=== PATIENT | female | born 1955 | race Caucasian/White ===

== ENCOUNTER 2018-12-20 01:42 | Outpatient (CLI) | payer OTHER, SELFPAY ==
--- NOTE | 2018-12-20 09:07 | DI.MAMMO_ITS ---
EXAM: MAMMO SCREENING CLINICAL HISTORY: SCREENING, Z12.31 TECHNIQUE: Mammograms were interpreted according to the usual protocol including computer analysis w [employer] CAD system, tomosynthesis and C-view imaging. COMPARISON: [id number] FINDINGS: The breasts are composed of scattered areas of fibroglandular density, breast density category B. No dominant masses or microcalcifications are seen. Examination is compared with prior examinations from 2009 through 2017 and there has been no significant interval change. IMPRESSION: There is no evidence of malignancy. Yearly screening examinations are recommended. Category 1. BI-RADS Cat 1 - Negative Breast Density - Category B - Scattered areas of fibroglandular density
== END 2018-12-20 02:02 ==
PROVIDERS: PCP General Practice; Visit Provider General Practice
DX: Z12.31 Encounter for screening mammogram for malignant neoplasm of breast (principal)
CPT/HCPCS: 77063; 77067

== ENCOUNTER 2019-12-26 00:55 | Outpatient (CLI) | payer OTHER, SELFPAY ==
--- NOTE | 2019-12-26 08:50 | DI.MAMMO_ITS ---
EXAM: MAMMO SCREENING CLINICAL HISTORY: SCREENING, Z12.31 TECHNIQUE: Mammograms were interpreted according to the usual protocol including computer analysis w [employer] CAD system, tomosynthesis and C-view imaging. COMPARISON: 2010 through 2018 FINDINGS: The breasts are composed of scattered fibroglandular densities, Breast Density category B. No suspicious masses or suspicious microcalcifications are seen. No skin thickening or abnormal axillary lymph nodes are seen. There has been no significant change from prior exams. IMPRESSION: BI-RADS Category 1, Negative mammogram Yearly screening mammography is recommended. Breast Density - Category B, scattered fibroglandular densities. A negative radiographic report should not delay biopsy if a dominant or clinically suspicious mass is present. Up to ten percent of cancers are not identified on mammography. A negative report may reinforce clinical impression. Adenosis and dense breasts may obscure an underlying neoplasm. False positive reports average 6 to 10%. Patient will receive a letter notifying them of these results.
== END 2019-12-26 01:15 ==
PROVIDERS: PCP General Practice; Visit Provider General Practice
DX: Z12.31 Encounter for screening mammogram for malignant neoplasm of breast (principal)
CPT/HCPCS: 77063; 77067

== ENCOUNTER 2020-12-26 01:04 | Outpatient (CLI) | payer OTHER, SELFPAY ==
--- NOTE | 2020-12-26 | DI.MAMMO_ITS ---
Exam(s) MAMMO SCREENING EXAM: MAMMO SCREENING CLINICAL HISTORY: SCREENING, Z12.31 TECHNIQUE: Bilateral full field digital CC and MLO mammographic images were obtained with 3D tomosyn thesis and utilizing computer aided detection (CAD). COMPARISON: Available for comparison. FINDINGS: Masses/Architectural Distortion: None seen. Microcalcifications: No suspicious pleomorphic-type are seen. Skin Thickening/Nipple Retraction: None. IMPRESSION: 1. No significant interval change with no specific features of malignancy noted. 2. Unless there is more urgent need, screening mammography is recommended, as per [employer] guidelines. BI-RADS Category 1 - Negative Breast Density - Category C - Heterogeneously dense Breast density category C or D implies that the patient has dense breast tissue. Dense breast tissue is very common and is not abnormal but dense breast tissue can make it harder to find cancer on a ma mmogram. Also, dense breast tissue may increase their breast cancer risk. This information about the result of the mammogram report was provided to the patient to raise their awareness. Use this report when you speak with the patient about their risks for breast cancer, which includes their family hist ory. At that time, you may recommend for more screening tests (Ultrasound or MRI) as they might be us eful based on their risk. A negative radiographic report should not delay biopsy if a dominant or clinically suspicious mass is present. Up to ten percent of cancers are not identified on mammography. A negative report may reinforce clinical impression. Adenosis and dense breasts may obscure an underlying neoplasm. False positive reports average 6 to 10%. Patient will receive a letter notifying them of these results.
== END 2020-12-26 01:24 ==
PROVIDERS: PCP General Practice; Visit Provider General Practice
DX: Z12.31 Encounter for screening mammogram for malignant neoplasm of breast (principal); R92.8 Other abnormal and inconclusive findings on diagnostic imaging of breast
CPT/HCPCS: 77063; 77067

== ENCOUNTER → 2022-02-24 00:52 | Outpatient (CLI) | payer OTHER, SELFPAY ==
--- NOTE | 2022-02-24 | DI.MAMMO_ITS ---
Exam(s) MAMMO SCREENING EXAM: MAMMO SCREENING CLINICAL HISTORY: SCREENING, Z12.31. TECHNIQUE: Bilateral full field digital CC and MLO mammographic images were obtained with 3D tomosyn thesis and utilizing computer aided detection (CAD). COMPARISON: Prior mammograms were reviewed. FINDINGS: There has been no significant change in the appearance and distribution of the fibroglandular tissue. No CAD designations. There are no new spiculated masses nor malignant appearing microcalcification groups. There is no significant architectural distortion nor skin thickening-retraction. IMPRESSION: No radiographic evidence of malignancy. BI-RADS Category 1 - Negative Breast Density - Category B - Scattered areas of fibroglandular density Breast density Category C or D implies that the patient has dense breast tissue. Dense breast tissue can make it harder to find cancer on a mammogram. Dense breast tissue is also associated with an incr eased risk of breast cancer. This information about the result of the mammogram report was provided to the patient to raise their awareness. Use this report when you speak with the patient about their risks for breast cancer, which includes their family history. At that time, you may recommend additional screening tests (Ultrasoun d or MRI) as these tests may add significant information. A negative radiographic report should not delay biopsy if a dominant or clinically suspicious mass is present. Up to ten percent of cancers are not identified on mammography. A negative report may reinforce clinical impression. Adenosis and dense breasts may obscure an underlying neoplasm. False positive reports average 6 to 10%. Patient will receive a letter notifying them of these results.
== END ==
PROVIDERS: PCP General Practice; Visit Provider General Practice
DX: Z12.31 Encounter for screening mammogram for malignant neoplasm of breast (principal)
CPT/HCPCS: 77063; 77067

== ENCOUNTER → 2022-10-21 08:42 | Outpatient (BNVA) | payer MEDICARE, SELFPAY | PROVIDERS: PCP General Practice; Referring Provider General Practice; Visit Provider Physical Therapy Assistant | DX: Z12.11 Encounter for screening for malignant neoplasm of colon (principal); Z86.010 Personal history of colon polyps ==

== ENCOUNTER 2022-11-01 07:35 | Day surgery (SDC) | payer MEDICARE, SELFPAY ==
--- NOTE | 2022-10-31 09:43 | PDOC.DSDIS_ITS ---
Date of service: 11/01/22 Time of Service: 09:21 Discharge Plan Disposition Patient Disposition: Home Condition: Good Discharge Details Reason For Visit: Screening colonoscopy Attending Provider: Gelacio Marie Primary Care Provider: Marisol Rice Home Meds and New Rx's Prescriptions: Continued flaxseed oil 1,000 MG capsule 1,000 mg PO DAILY Daily Multiple 1 EACH tablet 1 tab-cap PO DAILY clobetasol 15 GM ointment 15 gm Topical dailyprn Qty: 1 6RF cholecalciferol (vitamin D3) 25 mcg (1,000 unit) capsule 25 mcg PO DAILY Patient Comments: pt states takes them more in the winter months, less in the summer coenzyme Q10 [Co Q-10] 100 mg capsule 100 mg PO DAILY Discontinued polyethylene glycol 3350 17 gram/dose powder 238 g PO ONCE Qty: 238 0RF Rx Instructions: take per colonoscopy instructions bisacodyl [Dulcolax (bisacodyl)] 5 mg tablet,delayed release (DR/EC) 5 mg PO ONCE Qty: 4 0RF Rx Instructions: take per colonoscopy instructions Discharge Instructions Instructions: Diverticulosis (GEN), Diverticulosis Diet (GEN) Additional Instructions: Vaccine, we were able to complete your colonoscopy today without any problems. The quality of your prep was excellent. I did not see any signs of tumors or polyps. You do have diverticulosis. These are small weak spots in the colon wall that typically accumulate with age. When they cause symptoms, it is typic ally felt that sharp stabbing pain in the left side of the abdomen, and sometimes across the lower middle portion. The best way to take care of it is to maintain a diet that is well-balanced, and rich in dietary fiber. Staying well-hydrated can also be helpful. Try to avoid symptoms of constipation as best you can. I have attached some information here regarding general management of diverticular disease. 1. If tolerated, consume a soft, low fiber diet for 1-2 days. 2[address] Do not drive, drink alcohol, operate machinery, make critical decisions, or do activities that require coordination or balance for 24 hours. 3. Because air was put into your colon during the procedure, expelling air from your rectum (passing gas or farting) is normal. 4. You may not have a bowel movement for 1-3 days because of the colonoscopy prep. This is normal. 5. Go directly to the emergency room if you notice any of the following: Develop chills (warm to touch), or if you have a thermometer and your temperature is above 101 Difficulty breathing or difficultly swallowing Persistent vomiting Severe abdominal pain, other than gas cramps Severe chest pain Black, tarry stools Any bleeding ? exceeding one tablespoon 6. Call your physician if the site where your intravenous was started becomes red, swollen, painful, and warm to touch. 7. Your physician has reviewed your pre-procedure medications. Please continue to take those medications as previously ordered. You will be given specific information/education regarding any changes to your medications before leaving. Stand Alone Forms: Anesthesia Discharge Inst., Alex Aponte (DSU) Activity:: Activity as Tolerated Diet:: As Tolerated Discharge Orders Discharge Orders: Discharge Order (Routine); Ordered 10/31/22 Ordered By: Gelacio Marie DS: Diagnosis Discharge Diagnosis (1) Screening for colon cancer: Status: Acute Asessment and Plan: Negative screening colonoscopy
[2022-11-01 07:48] VITALS: BP 139/80; PULSE 75; RESP 16; TEMP 36.4; O2SAT 99
--- NOTE | 2022-11-01 08:01 | ANES.PREOP_ITS ---
General Info Date of Service Date Performed: 11/01/22 Height: 5 ft 1 in Weight: 60.7 kg Body Mass Index (BMI): 25.2 Surgical Procedure: Operation Date: 11/01/22 09:05 Proposed Procedure Side Surgeon gabrielle Marie MD Meds Allergies and Home Medications Allergies Allergy/AdvReac Type Severity Reaction Status Date / Time No Known Allergies Allergy Unverified 11/01/22 07:45 Home Medication Medication Instructions Recorded flaxseed oil 1,000 mg capsule 1,000 mg PO DAILY 01/07/16 multivitamin-ferrous 1 tab-cap PO DAILY 01/07/16 fumarate-folic acid 18 mg-400 mcg tablet (Daily Multiple) clobetasol 0.05 % topical ointment 15 gm topical dailyprn #1 tube 03/03/17 cholecalciferol (vitamin D3) 25 25 mcg PO DAILY 05/24/22 mcg (1,000 unit) capsule coenzyme Q10 100 mg capsule (Co 100 mg PO DAILY 05/24/22 Q-10) Current Visit Medications: Current Medications Generic Name Dose Route Start Last Admin Trade Name Freq PRN Reason Stop Dose Admin Hyoscyamine Sulfate 0.125 mg 10/31/22 09:44 Hyoscyamine 0.125 Mg Sl/Oral/Chew SL 11/30/22 09:43 DIRECTED PRN Ringer's Solution 1,000 mls @ 80 mls/hr 11/01/22 06:00 IV 11/28/22 23:59 INFUSION [facility] IV Miscellaneous Supplies 1 each 11/01/22 06:00 Iv Access IV 11/28/22 23:59 DIRECTED JESSICA Ondansetron HCl 4 mg 10/31/22 09:44 Ondansetron 4 Mg/2 Ml Vial IVP 11/30/22 09:43 Q4H PRN PRN Nausea / Vomiting Sodium Chloride 0 ml 11/01/22 06:00 Normal Saline Flush 10 Ml Syr IV 11/28/22 23:59 PRN PRN Sodium Chloride 0 ml 11/01/22 06:00 Normal Saline 10 Ml Vial IJ 11/28/22 23:59 DIRECTED PRN Sterile Water 0 ml 11/01/22 06:00 Water,Injection,Sterile 10 Ml Vial IJ 11/28/22 23:59 DIRECTED PRN PFSH Active Problems Active Problems: Problem Status Onset Code Diverticulitis K57.92 Screening for colon cancer Z12.11 Surgical History Surgical History Colonoscopy - MAC (06/20/17) Ligation of fallopian tube 1977 Tobacco Smoking/Tobacco Use Status: Former Tobacco Use Alcohol Alcohol Intake: never Substance Use Substance use: Never Substance use type: does not use Vital Signs and Lab Results Vital Signs Most Recent Vital Signs in EMR: Most Recent Vital Signs Temp Pulse Resp BP Pulse Ox 36.4 C L 75 16 139/80 99 11/01/22 07:48 11/01/22 07:48 11/01/22 07:48 11/01/22 07:48 11/01/22 07:48 Lab Results Blood Type / Crossmatch: No Data to Display Complete Blood Count: No Data to Display Complete Metabolic Panel: No Data to Display Liver Function Panel: No Data to Display Coagulation Panel: No Data to Display Cardiac Panel: No Data to Display Arterial Blood Gas: No Data to Display Venous Blood Gas: No Data to Display Pancreas Panel: No Data to Display Thyroid Panel: No Data to Display Infectious Disease: No Data to Display Blood Cultures: No Data to Display Toxicology Panel: No Data to Display Anesthesia Assessment and Plan Anesthesia History Personal History: No History of Anesthesia Complications Family History: No Family History of Anesthesia Complications Exercise Tolerance Exercise Tolerance: Metabolic Equivalents>4 Pertinent Negatives Pertinent Negatives: No Symptoms of GERD, No Major Cardiovascular Symptoms or Complaints and No Major Pulmonary Symptoms or Complaints Cardiac & Pulmonary Exam Cardiac Exam: Normal S1/S2 Heart Sounds Pulmonary Exam: Clear Bilateral Breath Sounds Implantable Cardiac Device Does patient have a Pacemaker or an ICD?: No Airway Exam Known Difficult Airway: No Mallampati Class: 1 Mouth Opening: Normal (> 3cm) Thyromental Distance: Greater than 3 cm Neck Range of Motion: Full ROM Neck Circumference: Normal Teeth Condition: Normal Dentition ASA Classification ASA Score: ASA 2 Emergency Case?: No NPO Status NPO Status: NPO Clears >2 hours, Solids >8 hours Anesthesia Plan Resuscitation Status: Full Code Anesthesia Technique: General Anesthesia Airway Planned: Natural Airway Monitors Used: Standard Monitors
[2022-11-01 08:02] VITALS: BMI 25.2
[2022-11-01] MEDS: Lactated Ringers 1,000 ML 80 ML IV (08:10)
[2022-11-01 09:23] VITALS: BP 110/66; PULSE 70; RESP 16; TEMP 36.2; O2SAT 95
--- NOTE | 2022-11-01 09:24 | W.COLOREPORT ---
Date of service: 11/01/22 Time of Service: 09:24 Colonoscopy Report Date of procedure: 11/01/22 Pre-op diagnosis general: Screening colonoscopy Post-op diagnosis procedure note: other (Negative screening colonoscopy) Procedure: Colonoscopy Surgeon: Gelacio Marie Anesthesia Type: General:No Airway Estimated blood loss (mL): 0 Pathology: none sent Complications: None Disposition: same day Indications: Amparo is a 67-year-old woman who is here for screening colonoscopy. She is undergone colonoscopy before, and is known to have diverticulosis, as well as a tubular adenoma. Prep: Miralax/Dulcolax Procedure Start Time: 09:00 Procedure End Time: 09:14 Retraction Time: 5 Findings: Sigmoid diverticulosis Procedure Description: After the induction of monitored anesthetic care, and with the patient in left lateral decubitus position, I began by performing an external anorectal exam.? Perineum and skin were normal, as was the anal verge.? There was no evidence of external hemorrhoids.? Next, I performed a digital rectal exam.? I did opt appreciate any abnormal findings.? Next, I advanced a colonoscope into the rectal vault.? I performed retroflexion.? This was normal.? Using insufflation, I then advanced the colonoscope beyond the rectal folds and into the sigmoid colon before advancing towards the cecum.? The quality of the prep was excellent.? There were widemouth sigmoid diverticuli. The scope was noted to be in the cecum by identification of the ileocecal valve and appendiceal orifice.? I then began withdrawing the colonoscope using repeated irrigation as necessary for full evaluation of the colonic mucosa. ?Once the scope was withdrawn to the level of the rectum, great care was taken to examine portions of the rectal folds.? Finally, the scope was withdrawn and the patient was brought to the same-day surgery recovery unit as the anesthetic wore off. ?The findings and instructions were shared with the patient prior to discharge.
[2022-11-01 09:59] VITALS: BP 110/57; PULSE 61; RESP 16; TEMP 36.2; O2SAT 97
--- NOTE | 2022-11-01 10:14 | W.ANESPOSTOP ---
Postoperative Evaluation Date, Time and Location Date Performed: 11/01/22 Time Performed: 10:14 Patient Location: Day Surgery Unit Vital Signs Most Recent Imported Vital Signs: Most Recent Vital Signs Temp Pulse Resp BP Pulse Ox 36.2 C L 70 16 110/66 95 11/01/22 09:23 11/01/22 09:23 11/01/22 09:23 11/01/22 09:23 11/01/22 09:23 Pain Score Most Recent Pain Score: Most Recent Pain Score Pain Level 0 11/01/22 07:48 Assessment Mental Status: Awake (Alert & Oriented to Patient Baseline) Airway and Respiratory Function: Patent airway with normal (patient baseline) respiratory exam Cardiovascular Function: Hemodynamically Stable Hydration Status: Adequately Hydrated Nausea & Vomiting: No Nausea or Vomiting Pain: Pt. Denies Any Pain Peripheral Nerve Block: Patient did not receive a nerve block
== END 2022-11-01 10:19 | disposition home or self-care (01) ==
PROVIDERS: PCP General Practice; Visit Provider Surgery
PROC: 0DJD8ZZ Inspection of Lower Intestinal Tract, Via Natural or Artificial Opening Endoscopic (ICD-10-PCS; CPT 45378; principal; 2022-11-01 09:00)
DX: Z12.11 Encounter for screening for malignant neoplasm of colon (principal); Z86.010 Personal history of colon polyps; K57.30 Diverticulosis of large intestine without perforation or abscess without bleeding
CPT/HCPCS: G0105

== ENCOUNTER → 2023-02-25 00:53 | Outpatient (CLI) | payer MEDICARE, SELFPAY ==
--- OUTSIDE RECORDS SUMMARY | 2023-02-25 01:05 | XMS_ITS | Patient Health Record ---
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 Name Role Phone THOMAS MAXIMO Primary Care Provider [phone] PERCY SUTHERLAND [phone] ALLERGIES No Known Allergies RESULTS Component Value Reference Range Notes CBC w/ Diff (Not yet reviewe d by provider) Interpretation: Performing Lab: Notes/Report: WBC 5.0 4.8-10.8 K/mcL RBC 4.94 4.20-5.40 Million/mcL Hgb 14.6 12.0-16.0 g/dL Hct 44.0 37.0-47.0 % MCV 89.1 81.0-99.0 fL MCH 29.6 27.0-31.0 pg Platelets 241 130-400 K/mcL MPV 7.6 7.4-10.4 fL MCHC 33.2 32.0-37.0 g/dL RDW-CV 13.6 11.5-14.5 % - Ordering Provider: PERCY SUTHERLAND CBC, WITH AUTO DIFF (Not yet reviewed by provider) Interpretation: Performing Lab: Notes/Report: Neutro Auto 63.9 42.2-75.2 % Lymph Auto 24.6 20.5-51.1 % Jay Auto 8.7 1.7-9.3 % Eos, Auto 2.30 0.00-3.00 % Basophil Auto 0.5 0.0-0.8 % Neutro Absolute 3.2 1.4-6.5 K/mcL Lymph Absolute 1.2 1.2-3.4 K/mcL Jay Absolute 0.4 0.1-0.6 K/mcL Eos Absolute 0.1 0.0-0.2 K/mcL Baso Absolute 0.0 0.0-0.2 K/mcL - Ordering Provider: PERCY SUTHERLAND TSH (reflex to FT4) (Not yet reviewed by provider) Interpretation: Performing Lab: Notes/Report: COMPREHENSIVE METABOLIC PROF ILE (Not yet reviewed by provider) Interpretation: Performing Lab: Notes/Report: Sodium Level 142 136-145 mmol/L Chloride Level 105 98-107 mmol/L CO2 30 21-31 mmol/L Alk Phos 83 34-104 IntlUnit/L AST 33 13-39 IntlUnit/L ALT 25 7-52 IntlUnit/L BUN 15 7-25 mg/dL Creatinine Level 0.70 0.60-1.20 mg/dL Calcium Level 10.7 8.6-10.3 mg/dL Protein Total 7.2 6.4-8.9 g/dL Albumin Level 4.8 3.5-5.7 g/dL Bilirubin Total 0.9 0.3-1.0 mg/dL Anion Gap 7.0 3.0-12.0 BUN/Creat Ratio 21.4 8.0-20.0 Osmolality 284 275-295 mOsm/kg A/G Ratio 2.0 1.0-2.5 g/dL Globulin 2.4 2.3-3.5 g/dL - Ordering Provider: PERCY SUTHERLAND LIPID PROFILE (Not yet revie wed by provider) Interpretation: Performing Lab: Notes/Report: Cholesterol Total 200 <=200 mg/dL HDL 62 23-92 mg/dL LDL 121.0 Chol/HDL 3.2 - Ordering Provider: PERCY SUTHERLAND REASON FOR REFERRAL No Information MEDICATIONS Medication SIG (Take, Route, Frequency, Duration) Notes Start Date End Date Status Vitamin D-3 1000 UNIT 1 capsule Orally O nce a day Active Flaxseed (Linseed) 1000 MG Orally Active Co Q-10 100 MG 1 capsule with a héctor l Orally Once a day Active IMMUNIZATIONS Vaccine Route Administration Date Status Comme nts Tdap-Adult IM Intramuscular 10/26/2018 Administered SOCIAL HISTORY Tobacco Use: Social History Observation Description Date Details (start date - stop date) Never Smoker NA - NA Sex Assigned At : Social History Observation Description Sex Assigned At Unknown Tobacco Use/Smoking Question Answer Notes Are you a nonsmoker Alcohol Screen Question Answer Notes Did you have a drink containing alcohol in the p ast year? No Points 0 Interpretation Negative PROBLEMS Problem Type ICD Code Onset Dates Problem Status W/U Status Risk SNOMED Code Notes Problem Diverticulitis of large intestine without perforation or abscess without bleeding (K57.32) Active confirmed Diverticulitis of colon (135120379) Problem Pure hypercholesterol emia, unspecified (E78.00) Active confirmed Pure hypercholesterolemia (829866733) VITAL SIGNS Heart Rate 65 /min 02/24/2023 Temperature 96.9 degrees Fahrenheit 02/24/2023 Oximetry 98 % 02/24/2023 Blood pressure diastolic 70 mm Hg 02/24/2023 Height 61 in 02/24/2023 Blood pressure systolic 122 mm Hg 02/24/2023 Weight 139 lbs 02/24/2023 BMI 26.26 kg/m2 02/24/2023 Encounters Encounter Location Date Provider Diagnosis [facility] [address] [address] 02/24/2023 PERCY SUTHERLAND Encounter for screening mammogram for malignant neoplasm of breast Z12.31 and Pure hypercholesterolemia , unspecified E78.00 ASSESSMENTS Encounter Date Diagnosis Assessment Notes Treatment Notes Treatment Clinical Notes 02/24/2023 Encounter for screening mammogram for malignant neoplasm of breast (ICD-10 - Z12.31) Faxed to [facility] 02/24/2023 Pure hypercholesterolem ia, unspecified (ICD-10 - E78.00) Will check fasting labs. Reviewed diet and exercise 02/24/2023 Other Pt educated.Fas ting labs to be done at [facility]. Immunizations reviewed and discussed PLAN OF TREATMENT Pending Test Test Name Order Date MG MAMMOGRAPHY BILATERAL SCREENING 11/07 MG MAMMOGRAPHY BILATERAL SCREENING 11/12 MG MAMMOGRAPHY BILATERAL SCREENING 02/18 MG MAMMOGRAPHY BILATERAL SCREENING 02/24 CBC w/ Diff 02/24/2023 Future Test Test Name Order Date CBC, WITH AUTO DIFF 02/24/2023 COMPREHENSIVE METABOLIC PROFILE 02/25/20 LIPID PROFILE 02/24/2023 TSH (reflex to FT4) 02/24/2023 Next Appt Details Provider Name:PERCY BOWERS NS, 03/14/2024 10:45:00 AM, [address], [place], [address], Insurance Providers Payer Name Payer Address Payer Phone Subscriber Number Group Number Insured Name Patient Relationship to Insured Coverage Start Date Coverage End Date [employer] [address] [address] [place] [address] [id number] Amparo Bhatt Self - patient is the insured 3 [employer] [address] [address] [place] [address] [id number] Amparo Bhatt Self - patient is the insured 3 MEDICAL (GENERAL) HISTORY Medical History History ICD Code 06-20-2017 Colonoscopy, cadence Harry t 5 years 03-03-2017 Pap/HPV neg 12-26-2020 Mammogram, neg Diverticulitis Surgical History Surgery Date(Month/Year) cataract surgery 11/02/2017 colonoscopy 06/20/2017 ligation of fallopian tube 1978
--- NOTE | 2023-02-25 14:40 | DI.MAMMO_ITS ---
Exam(s) MAMMO SCREENING EXAM: MAMMO SCREENING CLINICAL HISTORY: SCREENING,Z12.31 TECHNIQUE: Bilateral full field digital CC and MLO mammographic images were obtained with 3D tomosyn thesis and utilizing computer aided detection (CAD). COMPARISON: Available for comparison. FINDINGS: Masses/Architectural Distortion: There is an area of breast asymmetry in the central retroareolar reg ion of the left breast. It appears more prominent particularly on the MLO view. Microcalcifications: No suspicious pleomorphic-type are seen. Skin Thickening/Nipple Retraction: None. IMPRESSION: 1. Asymmetric breast tissue in the retroareolar region of the left breast. This area should be furth er evaluated with a spot compression view. 2. Targeted left breast ultrasound may also be indicated at that time. BI-RADS Category 0 - Assessment Incomplete: Need additional imaging evaluation Breast Density - Category B - Scattered areas of fibroglandular density Breast density category C or D implies that the patient has dense breast tissue. Dense breast tissue is very common and is not abnormal but dense breast tissue can make it harder to find cancer on a ma mmogram. Also, dense breast tissue may increase their breast cancer risk. This information about the result of the mammogram report was provided to the patient to raise their awareness. Use this report when you speak with the patient about their risks for breast cancer, which includes their family hist ory. At that time, you may recommend for more screening tests (Ultrasound or MRI) as they might be us eful based on their risk. A negative radiographic report should not delay biopsy if a dominant or clinically suspicious mass is present. Up to ten percent of cancers are not identified on mammography. A negative report may reinforce clinical impression. Adenosis and dense breasts may obscure an underlying neoplasm. False positive reports average 6 to 10%. Patient will receive a letter notifying them of these results.
== END ==
PROVIDERS: PCP General Practice; Visit Provider General Practice
DX: Z12.31 Encounter for screening mammogram for malignant neoplasm of breast (principal)
CPT/HCPCS: 77063; 77067

== ENCOUNTER → 2023-03-03 00:35 | Outpatient (CLI) | payer MEDICARE, SELFPAY ==
--- NOTE | 2023-03-03 | DI.MAMMO_ITS ---
Exam(s) MAMMO SCREEN CALL BACK UNI EXAM: MAMMO SCREEN CALL BACK UNI CLINICAL HISTORY: F/U MAMMO, ASYMMETRIC BREAST TISSUE LT BREAST TECHNIQUE: Spot compression views with tomographic imaging were performed. COMPARISON: 2013 through 2021 FINDINGS: No suspicious masses or suspicious microcalcifications are seen. No persistent abnormality is seen on the additional views performed. The findings are consistent wit h overlying fibroglandular tissue. There has been no significant change from prior exams. IMPRESSION: BI-RADS Category 1, Negative Yearly screening mammography is recommended. Breast Density - Category B, scattered fibroglandular densities.
--- OUTSIDE RECORDS SUMMARY | 2023-03-03 00:42 | XMS_ITS | Patient Health Record ---
Author Name Unknown Organization [facility] Healthcare Address [address] [place] [address] Care Team Providers Care Application Defense Manager Name Role Phone THOMAS MAXIMO Primary Care Provider [phone] PERCY SUTHERLAND Unavailable [phone] ALLERGIES No Known Allergies RESULTS Component Value Reference Range Notes LIPID PROFILE (Not yet revie wed by provider) Interpretation: Performing Lab: Notes/Report: Cholesterol Total 200 <=200 mg/dL HDL 62 23-92 mg/dL LDL 121.0 Chol/HDL 3.2 - Ordering Provider: PERCY SUTHERLAND COMPREHENSIVE METABOLIC PROF ILE (Not yet reviewed [...] 2.3-3.5 g/dL - Ordering Provider: PERCY SUTHERLAND TSH (reflex to FT4) (Not yet reviewed by provider) Interpretation: Performing Lab: Notes/Report: CBC, WITH AUTO DIFF (Not yet reviewed by provider) Interpretation: Performing Lab: Notes/Report: Neutro Auto 63.9 42.2-75.2 % Lymph Auto 24.6 20.5-51.1 % [place] Auto 8.7 1.7-9.3 % Eos, Auto 2.30 0.00-3.00 % Basophil Auto 0.5 0.0-0.8 % Neutro Absolute 3.2 1.4-6.5 K/mcL Lymph Absolute 1.2 1.2-3.4 K/mcL Hampshire Absolute 0.4 0.1-0.6 K/mcL Eos Absolute 0.1 0.0-0.2 K/mcL Baso Absolute 0.0 0.0-0.2 K/mcL - Ordering Provider: PERCY SUTHERLAND CBC w/ Diff (Not yet reviewe d by provider) Interpretation: Performing Lab: Notes/Report: WBC 5.0 4.8-10.8 K/mcL RBC 4.94 4.20-5.40 Million/mcL Hgb 14.6 12.0-16.0 g/dL Hct 44.0 37.0-47.0 % MCV 89.1 81.0-99.0 fL MCH 29.6 27.0-31.0 pg Platelets 241 130-400 K/mcL MPV 7.6 7.4-10.4 fL MCHC 33.2 32.0-37.0 g/dL RDW-CV 13.6 11.5-14.5 % - Ordering Provider: PERCY SUTHERLAND REASON FOR [...] bleeding (K57.32) Active confirmed Diverticulitis of colon (668811348) Problem Pure hypercholesterol emia, unspecified (E78.00) Active confirmed Pure hypercholesterolemia (894628210) VITAL SIGNS Heart Rate 65 /min 02/24/2023 Temperature 96.9 degrees Fahrenheit 02/24/2023 Oximetry 98 % 02/24/2023 Blood pressure diastolic 70 mm Hg 02/24/2023 Height 61 in 02/24/2023 Blood pressure systolic 122 mm Hg 02/24/2023 Weight 139 lbs 02/24/2023 BMI 26.26 kg/m2 02/24/2023 Encounters Encounter Location Date Provider Diagnosis [facility] [address] [place] [address] 02/24/2023 PERCY SUTHERLAND Encounter for screening mammogram for malignant neoplasm of breast Z12.31 and Pure hypercholesterolemia , unspecified E78.00 ASSESSMENTS Encounter Date Diagnosis Assessment Notes Treatment Notes Treatment Clinical Notes 02/24/2023 Encounter for screening mammogram for malignant neoplasm of breast (ICD-10 - Z12.31) Faxed to [facility] 02/24/2023 Pure hypercholesterolem ia, unspecified (ICD-10 - E78.00) Will check fasting labs. Reviewed diet and exercise 02/24/2023 Other Pt educated.Fas ting labs to be done at [facility]. Immunizations reviewed and discussed PLAN OF TREATMENT [...] Name:PERCY BOWERS NS, 03/14/2024 10:45:00 AM, [address], [place], [address], Insurance Providers Payer Name Payer Address Payer Phone Subscriber Number Group Number Insured Name Patient Relationship to Insured Coverage Start Date Coverage End Date [employer] [address] [address] [place] [address] [id number] [employer] Amparo feldman Self - patient is the insured 3 [employer] [address] [address] [place] [address] [phone] [id number] Amparo Bhatt Self - patient is the insured 3 MEDICAL (GENERAL) HISTORY Medical History History ICD Code 11-01-2022 Colonoscopy, 03-03-2017 Pap/HPV neg 02-24-2022 Mammogram, neg Diverticulitis Surgical History Surgery Date(Month/Year) cataract surgery 11/02/2017 colonoscopy 06/20/2017 ligation of fallopian tube 1978
== END ==
PROVIDERS: PCP General Practice; Visit Provider General Practice
DX: Z12.31 Encounter for screening mammogram for malignant neoplasm of breast (principal); R92.321 Mammographic fibroglandular density, right breast
CPT/HCPCS: 77063; 77067

== ENCOUNTER 2024-03-23 00:21 | Outpatient (CLI) | payer MEDICARE, SELFPAY ==
--- OUTSIDE RECORDS SUMMARY | 2024-03-23 00:23 | XMS_ITS | Clinical Summary ---
Author Organization [facility] Address [address] [place] [address] Care Team Providers Care General Worker Name Role Phone Maureen Fraire MD Primary Care Provide r Unavailable Social History Tobacco Use Types Packs/Day Years Used Date Smoking Tobacco: Never Assessed Interpersonal Safety Answer Date Record ed Physically Hurt Never 10/07/2019 Verbally Threaten Not on file 10/07/2019 Comments Unknown Sex and Gender Information Value Date Recorded Sex Assigned at Not on file Legal Sex Female 18:24 EST Gender Identity Not on file Sexual Orientation Not on file Plan of Treatment Health Maintenance Due Date Last Done Comments Hepatitis C Screen 1955 Fall Risk Screening 2019 COVID-19 Vaccine ( season) 2023 RSV Immunization ( o r 60+ Years) (1 - 1-dose 75+ series) 2029 Care Teams General Worker Relationship Specialty Start Date End Date Maureen Fraire MD PCP - General 11/13/10
--- OUTSIDE RECORDS SUMMARY | 2024-03-23 00:23 | XMS_ITS | Encounter Summary ---
Author Organization [facility] Address [address] [place] [address] Care Team Providers Care Ultrasound Spec Name Role Phone Unavailable Primary Care Provider Unavailabl e Encounter Details Date Type Department Care Team (Late st Contact Info) Description 09/09/2004 Results Only [facility] - Maple conversion [address] [place] [address] Jackelyn Valles, [facility] [address] [place] [address] [place] [address] Social History Tobacco Use Types Packs/Day Years Used Date Smoking Tobacco: Never Assessed Comments Unknown Sex and Gender Information Value Date Recorded Sex Assigned at Not on file Legal Sex Female 18:24 EST Gender Identity Not on file Sexual Orientation Not on file documented as of this encounter Plan of Treatment Not on file documented as of this encounter Procedures Procedure Name Priority Date/Time Associated Diagnosis Comments CYTOPATHOLOGY Routine 09/09/2004 0:00 EDT documented in this encounter Results * CYTOPATHOLOGY (09/09/2004 0:00 EDT) Pathology Report: CYTOPATHOLOGY REPORT Reports generated via electronic interface contain original data; however they are lacking the format of the original report. Caution should be taken when reading/interpreti ng unformatted reports. Name: ? DOMENICO RIVERA ? Accession #: ? [id number] : ? 1955 (Age: 49) ??F ?Collect Date: ? 09/09/2004 Location: ? [facility] ? Receive Date: ? 09/11/2004 Provider: ?JACKELYN VALLES SEAT INSTALLER Copy to: ? Specimen/Source: ?ThinPrep Pap Test, Cervix/Endocervix, processed on imo[employer]im ThinPrep Imaging System, with manual evaluation Last Menstrual Period: ? 09/04/04 Previous Gynecologic Pathology: ? Benign cellular changes: Other: ? HPVA - HPV testing requested if ASC-US on the current ThinPrep Pap test. ? SPECIMEN ADEQUACY ? Satisfactory for Evaluation - transformation zone component present GENERAL CATEGORIZATION ? Negative for Intraepithelial Lesion or Malignancy ? Document reviewed and electronically signed by: ? MONTRELL Pierson(ASCP) ? Report Date: ??09/21/2004 13:49 End of Report [facility] 09/09/2004 09/11/2004 us Jackelyn Valles SEAT INSTALLER PATHOLOGY ORDERABLES Final R esult [facility] [address] [place] [address] documented in this encounter Visit Diagnoses Not on filedocumented in this encounter
--- OUTSIDE RECORDS SUMMARY | 2024-03-23 00:23 | XMS_ITS | Encounter Summary ---
Author Organization [facility] Address [address] [place] [address] Care Team Providers Care Negative Developer Name Role Phone Unavailable Primary Care Provider Unavailabl e Encounter Details Date Type Department Care Team (Latest Contact Info) Description 07/08/1999 6:05 EDT - 07/09/1999 11:59 EDT Hospital Encounter [facility] [address] [place] [address] Sha Hong, DDS [address] [place] [address] Discharge Disposition: Home or Self Care Social History Tobacco Use Types Packs/Day Years Used Date Smoking Tobacco: Never Assessed Comments Unknown Sex and Gender Information Value Date Recorded Sex Assigned at Not on file Legal Sex Female 18:24 EST Gender Identity Not on file Sexual Orientation Not on file documented as of this encounter Discharge Disposition Disposition Code Departure Means Destination Home or Self Care documented in this encounter Plan of Treatment Not on file documented as of this encounter Visit Diagnoses Not on filedocumented in this encounter
--- OUTSIDE RECORDS SUMMARY | 2024-03-23 00:23 | XMS_ITS | Encounter Summary ---
Author Organization [facility] Address [address] [place] [address] Care Team Providers Care Imaging Assistant Name Role Phone Unavailable Primary Care Provider Unavailabl e Encounter Details Date Type Department Care Team (Late st Contact Info) Description 09/03/2002 Results Only [facility] - Maple conversion [address] [place] [address] Brandy Gonzalez NP Social History Tobacco Use Types Packs/Day Years [...] Priority Date/Time Associated Diagnosis Comments CYTOPATHOLOGY Routine 09/03/2002 0:00 EDT documented in this encounter Results * CYTOPATHOLOGY (09/03/2002 0:00 EDT) Pathology Report: CYTOPATHOLOGY REPORT Reports generated via electronic interface contain original data; however they are lacking the format of the original report. Caution should be taken when reading/interpreti ng unformatted reports. Name: ? DOMENICO RIVERA ? Accession #: ? [id number] : ? 1955 (Age: 47) ??F ?Collect Date: ? 09/03/2002 Location: ? [facility] ? Receive Date: ? 09/05/2002 Provider: ?BRANDY GONZALEZ DRAPERY INSTALLER Copy to: ? Specimen/Source: ?ThinPrep Pap Test, Cervix/Endocervix Last Menstrual Period: ? 08/10/02 Previous Gynecologic Pathology: ? Benign cellular changes: Other: ? Additional clinical information: 07/05/, 07/06 negative ? SPECIMEN ADEQUACY ? Satisfactory for Evaluation - transformation zone component present GENERAL CATEGORIZATION ? Negative for Intraepithelial Lesion or Malignancy ? Document reviewed and electronically signed by: ? MONTRELL Munoz(ASCP) ? Report Date: ??09/11/2002 08:54 End of Report [facility] 09/03/2002 09/05/2002 us Brandy Gonzalez NP PATHOLOGY ORDERABLES Final Re sult [facility] [address] [place] [address] documented in this encounter Visit Diagnoses Not on filedocumented in this encounter
--- OUTSIDE RECORDS SUMMARY | 2024-03-23 00:23 | XMS_ITS | Encounter Summary ---
Author Organization [facility] Address [address] [place] [address] Care Team Providers Care Polymer Tester Name Role Phone Unavailable Primary Care Provider Unavailabl e Encounter Details Date Type Department Care Team (Late st Contact Info) Description 09/28/2006 Results Only [facility] - Maple conversion [address] [place] [address] Brandy Gonzalez NP Social History Tobacco Use [...] Priority Date/Time Associated Diagnosis Comments CYTOPATHOLOGY Routine 09/28/2006 0:00 EDT documented in this encounter Results * CYTOPATHOLOGY (09/28/2006 0:00 EDT) Pathology Report: CYTOPATHOLOGY REPORT Reports generated via electronic interface contain original data; however they are lacking the format of the original report. Caution should be taken when reading/interpreti ng unformatted reports. Name: ? DOMENICO RIVERA ? Accession #: ? [id number] : ? 1955 (Age: 51) ??F ?Collect Date: ? 09/28/2006 Location: ? [facility] ? Receive Date: ? 09/29/2006 Provider: ?BRANDY GONZALEZ HISTORY INSTRUCTOR Copy to: ? Specimen/Source: ?ThinPrep Pap Test, Cervix/Endocervix, processed on [employer] ThinPrep Imaging System, with manual evaluation Last Menstrual Period: ? 09/20/06 Previous Gynecologic Pathology: ? Benign cellular changes: 4.00 Other: ? HPVA - HPV testing requested if ASC-US on the current ThinPrep Pap test. ? SPECIMEN ADEQUACY ? Satisfactory for Evaluation - transformation zone component present GENERAL CATEGORIZATION ? Negative for Intraepithelial Lesion or Malignancy ? Document reviewed and electronically signed by: ? Gisell Weller, MONTRELL(ASCP)(IAC) ? Report Date: ??10/05/2006 10:15 End of Report [facility] 09/28/2006 09/29/2006 us Brandy Gonzalez NP PATHOLOGY ORDERABLES Final Re sult [facility] [address] [place] [address] documented in this encounter Visit Diagnoses Not on filedocumented in this encounter
--- OUTSIDE RECORDS SUMMARY | 2024-03-23 00:23 | XMS_ITS | Encounter Summary ---
Author Organization [facility] Address [address] [place] [address] Care Team Providers Care Surgical Product Sales Consultant Name Role Phone Maureen Fraire MD Primary Care Provide r Unavailable Encounter Details Date Type Department Care Team (Late st Contact Info) Description 03/03/2017 Results Only [facility]- [facility] [phone] Alicia Torres, ADOLESCENT MEDICINE SPECIALIST [address] [place] [address] Social History Tobacco Use Types [...] Procedure Name Priority Date/Time Associated Diagnosis Comments PAP TEST- RESULT ONLY Routine 03/03/2017 0:00 EST documented in this encounter Results * PAP TEST- RESULT ONLY (03/03/2017 0:00 EST) Pathology Report: CYTOPATHOLOGY REPORT Reports generated via electronic interface contain original data; however they are lacking the format of the original report. Caution should be taken when reading/interpreti ng unformatted reports. Name: ? DOMENICO RIVERA ? Accession #: ? [id number] ? : ? 1955 (Age: 62) ??F ?Collect Date: ? 03/03/2017 ? Location: ? [facility] ? Receive Date: ? 03/04/2017 ? Provider: ALICIA TORRES APRN Copy to: ? Final Report SPECIMEN ADEQUACY ? Satisfactory for Evaluation - transformation zone component present GENERAL CATEGORIZATION ? Negative for Intraepithelial Lesion or Malignancy ?? Menstrual/Pregnanc y Status: ??Post Menopausal Specimen/Source: ??Pap Test, Cervix, ThinPrep Imaging System with manual evaluation Document reviewed and electronically signed by: ? Chantelle Waite, [place](ASCP) ? Report ??Date: 03/15/2017 13:31 HPV with Pap Test ? Date Ordered: ? 03/15/2017 ? Status: ?? Signed Out ?Date Complete: ? 03/17/2017 ? By: ??System Interface ? Date Reported: ? 03/17/2017 ? Interpretation RESULT: Negative for HPV. No E6 or E7 mRNA is detected from HPV types 16,18,31,33,35, 39,45,51,52,56,58, 59,66, and 68 by integration engineer mediated amplification. Comments Document reviewed and electronically signed by: ? System Interface ? Report date: 03/17/2017 By the signature above, the attending physician certifies that he/she has personally conducted a gross and/or microscopic examination of the described specimens and rendered or confirmed the above diagnosis. End of Report [facility] 03/03/2017 03/04/2017 us Alicia Torres APRN PATHOLOGY ORDERABLES Stefania miller Result [facility] [address] [place] [address] documented in this encounter Visit Diagnoses Not on filedocumented in this encounter Care Teams Surgical Product Sales Consultant Relationship Specialty Start Date End Date Maureen Fraire MD PCP - General 11/13/10 documented as of this encounter
--- OUTSIDE RECORDS SUMMARY | 2024-03-23 00:23 | XMS_ITS | Encounter Summary ---
Author Organization [facility] Address [address] [place] [address] Care Team Providers Care Chief Drafter Name Role Phone Unavailable Primary Care Provider Unavailabl e Encounter Details Date Type Department Care Team (Late st Contact Info) Description 11/11/2010 Results Only [facility] Laboratory Services - [facility] ([facility]) [address] [place] [address] Jenelle Dalton MD [address] [address] [place] [address] Social History Tobacco Use Types Packs/Day Years [...] Procedure Name Priority Date/Time Associated Diagnosis Comments SURGICAL PATHOLOGY Routine 11/11/2010 0:00 EDT documented in this encounter Results * SURGICAL PATHOLOGY (11/11/2010 0:00 EDT) Pathology Report: SURGICAL PATHOLOGY REPORT ? Reports generated via electronic interface contain original data; ? however they are lacking the format of the original report. ? Caution should be taken when reading/interpreti ng unformatted reports. ? Name: ? CARBONNEAU, DOMENICO ? Accession #: ? [id number] ? : ? 1955 (Age: 55) ??F ? Collect Date: ? 11/11/2010 ? Location: ? [facility] ? Receive Date: ? 11/12/2010 ? Provider: JENELLE DALTON MD ? Copy to: YANG M MACHELLE CARTRIDGE GAUGER ? Final Pathologic Diagnosis: ? Cervix, polyp, biopsy: ? 1. ?Benign endocervical polyp. ? 2. ? Benign ectocervical tissue is also identified. ? Document reviewed and electronically signed by: ? CARRI DECKER MD ? Report ??Date: 11/13/2010 16:06 ? By the signature above, the attending physician certifies that he/she has ? personally conducted a gross and/or microscopic examination of the described ? specimens and rendered or confirmed the above diagnosis. ? Specimen(s) Received: ? Polyp ? Clinical History: ? Cervical polyp; LMP: 5/1/08 ? Gross Description: ? Received in formalin labelled Domenico Allen and cervical polyp is a 1.5 x 1.0 x 0.6 cm firm rangel-pink somewhat polypoid piece of tissue which does not have a stalk and has a slightly irregular resection margin (the resection ?? margin is black inked). ??Received separately in the specimen container is a ? rangel-pink soft tissue fragment measuring 0.6 x 0.4 x 0.2 cm. ??The polypoid piece of tissue is quadrisected and entirely submitted as (A1) and (A2) while the ? separately received small piece of tissue is submitted intact as (A3). ??( ? Huber)/chapincito ? End of Report ? [facility] 11/11/2010 11/12/2010 9:3 4 EDT us Jenelle Dalton MD PATHOLOGY ORDERABLES Final Resu lt [facility] [address] [place] [address] documented in this encounter Visit Diagnoses Not on filedocumented in this encounter
--- OUTSIDE RECORDS SUMMARY | 2024-03-23 00:23 | XMS_ITS | Encounter Summary ---
Author Organization [facility] Address [address] [place] [address] Care Team Providers Care Drapery And Upholstery Measurer Name Role Phone Unavailable Primary Care Provider Unavailabl e Encounter Details Date Type Department Care Team (Late st Contact Info) Description 06/18/1999 Results Only [facility] - Maple conversion [address] [place] [address] Aneudy Rolle MD [address] [place], [place] [address] Social History Tobacco Use Types Packs/Day Years [...] Priority Date/Time Associated Diagnosis Comments CYTOPATHOLOGY Routine 06/18/1999 12:08 EDT documented in this encounter Results * CYTOPATHOLOGY (06/18/1999 12:08 EDT) Pathology Report: CYTOPATHOLOGY REPORT Reports generated via electronic interface contain original data; however they are lacking the format of the original report. Caution should be taken when reading/interpreti ng unformatted reports. Name: ? DOMENICO RIVERA ? Accession #: ? [id number] : ? 1955 (Age: 44) ??F ?Collect Date: ? 06/18/1999 Location: ?Receive Date: ? 06/18/1999 Provider: ?ANEUDY ROLLE MD Copy to: ?ANEUDY ROLLE MD ? Specimen/Source: ?Craft Manager ThinPrep Last Menstrual Period: ? GYNECOLOGIC ??CYTOPATHOLOGY ??REPORT Name: DOMENICO RIVERA ?[facility] : 1955 ?? 44Y F ?Client ID: [id number] SS#: [id number] ? Clinician: ANEUDY ROLLE MD ?? Location: [facility] ??Copy to: ?? Specimen: ?Craft Manager ThinPrep ? Source: Cervix/Endocervix ?Collected: 06/16/99 ? Received: 06/18/1999 ?LMP: 06/12/99 ? Hormone Therapy: No ? : No ? Radiation Therapy: No ?? Post : No ?Chemotherapy: No ?IUD: No ? Prev Abnormal Pap: No ?? Clinical Hx: ?(Blank hurtado indicate information not provided on requisition) SPECIMEN ADEQUACY: ? Satisfactory For Evaluation ?? GENERAL CATEGORIZATION: ? BENIGN CELLULAR CHANGES ?? DESCRIPTIVE DIAGNOSIS: ? Reactive Cellular Changes Associated With Inflammation Present ? (Includes Repair) ? Reviewed And Electronically Signed By: ? Baljit Gibbs M.D. ? Report Date: ?? 06/29/1999 [facility] Archived Tests - Final Diagnosis Text Field: Clinical History : ? Document reviewed and electronically signed by: ? Conversion ? Report Date: ??06/29/1999 00:00 End of Report [facility] 06/18/1999 12:0 8 EDT 06/18/1999 12:09 EDT us Aneudy Rolle MD PATHOLOGY ORDERABLES Final Resul t [facility] [address] [place] [address] documented in this encounter Visit Diagnoses Not on filedocumented in this encounter
--- OUTSIDE RECORDS SUMMARY | 2024-03-23 00:23 | XMS_ITS | Encounter Summary ---
Author Organization [facility] Address [address] [place] [address] Care Team Providers Care Saw Setter Name Role Phone Maureen Fraire MD Primary Care Provide r Unavailable Encounter Details Date Type Department Care Team (Late st Contact Info) Description 11/14/2013 Results Only [facility] Laboratory Services - [facility] ([facility]) [address] [place] [address] Jenelle Dalton MD [address] [place] [address] [place] [address] Social History Tobacco Use Types Packs/Day Years [...] Diagnosis Comments PAP TEST- RESULT ONLY Routine 11/14/2013 0:00 EDT documented in this encounter Results * PAP TEST- RESULT ONLY (11/14/2013 0:00 EDT) Pathology Report: CYTOPATHOLOGY REPORT Reports generated via electronic interface contain original data; however they are lacking the format of the original report. Caution should be taken when reading/interpreti ng unformatted reports. Name: ? DOMENICO RIVERA ? Accession #: ? [id number] ? : ? 1955 (Age: 58) ??F ?Collect Date: ? 11/14/2013 ? Location: ? [facility] ? Receive Date: ? 11/15/2013 ? Provider: JENELLE DALTON MD Copy to: ? Final Report SPECIMEN ADEQUACY ? Satisfactory for Evaluation - assessment of transformation zone component not applicable ( e.g. atrophy, vaginal sample, hysterectomy) - scant squamous epithelial component GENERAL CATEGORIZATION ? Negative for Intraepithelial Lesion or Malignancy ?? Specimen/Source: ??Pap Test, Cervix/Endocervix, ThinPrep Imaging System with manual evaluation Document reviewed and electronically signed by: ? MONTRELL Munoz(ASCP) ? Report ??Date: 11/21/2013 07:30 HPV with Pap Test ? Date Ordered: ? 11/21/2013 ? Status: ?? Signed Out ?Date Complete: ? 11/22/2013 ? By: ??System Interface ? Date Reported: ? 11/22/2013 ? Interpretation RESULT: Negative for HPV. No E6 or E7 mRNA is detected from HPV types 16,18,31,33,35, 39,45,51,52,56,58, 59,66, and 68 by monorail hooker mediated amplification. Comments Document reviewed and electronically signed by: ? System Interface ? Report date: 11/22/2013 By the signature above, the attending physician certifies that he/she has personally conducted a gross and/or microscopic examination of the described specimens and rendered or confirmed the above diagnosis. End of Report [facility] 11/14/2013 11/15/2013 Jenelle Dalton MD PATHOLOGY ORDERABLES Final Resu lt [facility] [address] [place] [address] documented in this encounter Visit Diagnoses Not on filedocumented in this encounter Care Teams Saw Setter Relationship Specialty Start Date End Date Maureen Fraire MD PCP - General 11/13/10 documented as of this encounter
--- OUTSIDE RECORDS SUMMARY | 2024-03-23 00:23 | XMS_ITS | Encounter Summary ---
Author Organization [facility] Address [address] [place] [address] Care Team Providers Care Manager Of Customer Billing Name Role Phone Unavailable Primary Care Provider Unavailabl e Encounter Details Date Type Department Care Team (Late st Contact Info) Description 10/21/2010 Results Only [facility] - [address] [address] Brandy Gonzalez NP Social History Tobacco Use [...] Diagnosis Comments PAP TEST- RESULT ONLY Routine 10/21/2010 0:00 EDT documented in this encounter Results * PAP TEST- RESULT ONLY (10/21/2010 0:00 EDT) Pathology Report: CYTOPATHOLOGY REPORT ? Reports generated via electronic interface contain original data; ? however they are lacking the format of the original report. ? Caution should be taken when reading/interpreti ng unformatted reports. ? Name: ? DOMENICO RIVERA ? Accession #: ? [id number] ? : ? 1955 (Age: 55) ??F ?Collect Date: ? 10/21/2010 ? Location: ? [facility] ? Receive Date: ? 10/22/2010 ? Provider: BRANDY M LISA COMPLIANCE OFFICER ? Copy to: ? Final Report ? SPECIMEN ADEQUACY ? Satisfactory for Evaluation ? - transformation zone component present ? GENERAL CATEGORIZATION ? Negative for Intraepithelial Lesion or Malignancy ? Last Menstural Period: /08 ? Previous Gynecologic Pathology: Benign cellular changes: 04/00 ? Other: Additional clinical information: Cervical polyp ? Specimen/Source: ??Pap Test, Cervix/Endocervix, ThinPrep Imaging System with ? manual evaluation ? Document reviewed and electronically signed by: ? Stephania Nela, [place](ASCP) ? Report ??Date: 10/28/2010 12:49 ? HPV with Pap Test ? Date Ordered: ? 10/28/2010 ? Status: ?? Signed Out ?Date Complete: ? 11/02/2010 ? By: ??System Interface ? Date Reported: ? 11/02/2010 ? Interpretation ? RESULT: Negative for HPV types 16, 18, 31, 33, 35, 39, 45, 51, 52, ? 56, 58, 59, and 68. ? Comments ? Document reviewed and electronically signed by: ? System Interface ? Report date: 11/02/2010 ? By the signature above, the attending physician certifies that he/she has ? personally conducted a gross and/or microscopic examination of the described ? specimens and rendered or confirmed the above diagnosis. ? End of Report ? [facility] 10/21/2010 10/22/2010 us Brandy M Lisa COMPLIANCE OFFICER PATHOLOGY ORDERABLES Final Re sult [facility] [address] [place] [address] documented in this encounter Visit Diagnoses Not on filedocumented in this encounter
--- OUTSIDE RECORDS SUMMARY | 2024-03-23 00:23 | XMS_ITS | Encounter Summary ---
Author Organization [facility] Address [address] [place] [address] Care Team Providers Care Tap Dancer Name Role Phone Unavailable Primary Care Provider Unavailabl e Encounter Details Date Type Department Care Team (Late st Contact Info) Description 10/04/2007 Before PRISM Converted Visit (Maple) [facility] - Maple conversion [address] [place] [address] Brandy Gonzalez, ISABELLA Social History Tobacco Use Types Packs/Day Years [...] Procedure Name Priority Date/Time Associated Diagnosis Comments HPV DETECTION, HIGH RISK TYPES Routine 10/04/2007 15:40 EDT CYTOPATHOLOGY Routine 10/04/2007 0:00 EDT documented in this encounter Results * HUMAN PAPILLOMA VIRUS DNA TEST (10/04/2007 15:40 EDT) Specimen Description Cervix, ThinPrep vial [facility] Result Negative for HPV types 16, 18, 31, 33, 35, 39, 45, 51, 52, 56, 58, 59, and 68. [facility] Report Status Final [id number] [facility] 10/04/2007 15:4 0 EDT 10/10/2007 15:23 EDT us Brandy Hwang [place] RECORDS TECHNICIAN MICROBIOLOGY - GENERAL ORDERA BLES Final Result [facility] [address] [place] [id number] * CYTOPATHOLOGY (10/04/2007 0:00 EDT) Pathology Report: CYTOPATHOLOGY REPORT ? Reports generated via electronic interface contain original data; ? however they are lacking the format of the original report. ? Caution should be taken when reading/interpreti ng unformatted reports. ? Name: ? DOMENICO RIVERA ? Accession #: ? [id number] ? : ? 1955 (Age: 52) ??F ?Collect Date: ? 10/04/2007 ? Location: ? [facility] ? Receive Date: ? 10/05/2007 ? Provider: ?BRANDY M MACHELLE RECORDS TECHNICIAN ? Copy to: ? Specimen/Source: ?ThinPrep Pap Test, Cervix/Endocervix, processed on [employer] ThinPrep Imaging System, with manual evaluation ? Last Menstrual Period: ? 5/08 ? Previous Gynecologic Pathology: ? Benign cellular changes: 4/00 ? Other: ? HPVDX - HPV testing requested regardless of diagnosis on current ThinPrep Pap ?? test. ? SPECIMEN ADEQUACY ? Satisfactory for Evaluation ? - transformation zone component present ? GENERAL CATEGORIZATION ? Negative for Intraepithelial Lesion or Malignancy ? Document reviewed and electronically signed by: ? Zach Hines, CT(ASCP) ? Report Date: ??10/10/2007 10:21 ? End of Report ? [facility] 10/04/2007 10/05/2007 us Brandy Gonzalez RECORDS TECHNICIAN PATHOLOGY ORDERABLES Final Re sult [facility] [address] [place] [address] documented in this encounter Visit Diagnoses Not on filedocumented in this encounter
--- OUTSIDE RECORDS SUMMARY | 2024-03-23 00:23 | XMS_ITS | Encounter Summary ---
Author Organization [facility] Address [address] [place] [address] Care Team Providers Care Softball Umpire Name Role Phone Maureen Fraire MD Primary Care Provide r Unavailable Encounter Details Date Type Department Care Team (Late st Contact Info) Description 06/20/2017 Results Only [facility] [phone] Alivia Keith MD [address] [place] [address] [address] [place], [place] [id number] Social History Tobacco Use Types Packs/Day Years [...] Date/Time Associated Diagnosis Comments SURGICAL PATHOLOGY Routine 06/20/2017 16 :30 EDT documented in this encounter Results * SURGICAL PATHOLOGY (06/20/2017 16:30 EDT) Pathology Report: SURGICAL PATHOLOGY REPORT Reports generated via electronic interface contain original data; however they are lacking the format of the original report. Caution should be taken when reading/interpret ing unformatted reports. Name: ? DOMENICO RIVERA ? Accession #: ? [id number] ? : ? 1955 (Age: 62) ??F ? Collect Date: ? 06/20/2017 ? Location: ? [facility] ? Receive Date: ? 06/20/2017 ? Provider: ALIVIA KEITH MD Copy to: PERCY AUGUSTE ? Final Pathologic Diagnosis: COLON, ASCENDING, POLYP, BIOPSY: - Tubular adenoma. Document reviewed and electronically signed by: FRANK GARVIN MD Report ??Date: 06/22/2017 10:24 By the signature above, the attending physician certifies that he/she has personally conducted a gross and/or microscopic examination of the described specimens and rendered or confirmed the above diagnosis. Specimen(s) Received: Ascending colon polyp Clinical History: Screening for colon cancer Gross Description: ? Received in formalin labelled with proper patient identification (initials C, M) and ascending colon polyp is a rangel irregular tissue, 0.4 x 0.2 x 0.2 cm. Entirely submitted in 1. KALYANI Johnson (ASCP) 06/20/2017 5:23 PM End of Report [facility] 06/20/2017 16:3 0 EDT 06/20/2017 16:30 EDT us Alivia Keith MD PATHOLOGY ORDERABLES Fin al Result [facility] [address] [place] [address] documented in this encounter Visit Diagnoses Not on filedocumented in this encounter Care Teams Softball Umpire Relationship Specialty Start Date End Date Maureen Fraire MD PCP - General 11/13/10 documented as of this encounter
--- OUTSIDE RECORDS SUMMARY | 2024-03-23 00:23 | XMS_ITS | Encounter Summary ---
Author Organization [facility] Address [address] [place] [address] Care Team Providers Care Head Teacher Name Role Phone Maureen Fraire MD Primary Care Provide r Unavailable Encounter Details Date Type Department Care Team (Latest Contact Info) Description 06/20/2017 11:29 EDT - 06/20/2017 23:59 EDT Hospital Encounter [address] [address] Maureen Fraire MD Discharge Disposition: Home or Self Care Social [...] Code Departure Means Destination Home or Self Nursing Home documented in this encounter Plan of Treatment Not on file documented as of this encounter Visit Diagnoses Not on filedocumented in this encounter Care Teams Head Teacher Relationship Specialty Start Date End Date Maureen Fraire MD PCP - General 11/13/10 documented as of this encounter
--- OUTSIDE RECORDS SUMMARY | 2024-03-23 00:23 | XMS_ITS | Encounter Summary ---
Author Organization [facility] Address [address] [place] [address] Care Team Providers Care Marking Devices Assembler Name Role Phone Unavailable Primary Care Provider Unavailabl e Encounter Details Date Type Department Care Team (Late st Contact Info) Description 09/15/2005 Results Only [facility] - Maple conversion [address] [place] [address] Brandy Gonzalez NP Social History Tobacco Use [...] Priority Date/Time Associated Diagnosis Comments CYTOPATHOLOGY Routine 09/15/2005 0:00 EDT documented in this encounter Results * CYTOPATHOLOGY (09/15/2005 0:00 EDT) Pathology Report: CYTOPATHOLOGY REPORT Reports generated via electronic interface contain original data; however they are lacking the format of the original report. Caution should be taken when reading/interpreti ng unformatted reports. Name: ? DOMENICO RIVERA ? Accession #: ? [id number] : ? 1955 (Age: 50) ??F ?Collect Date: ? 09/15/2005 Location: ? [facility] ? Receive Date: ? 09/16/2005 Provider: ?BRANDY GONZALEZ BEVERAGE SALES CONSULTANT Copy to: ? Specimen/Source: ?ThinPrep Pap Test, Cervix/Endocervix, processed on [employer] ThinPrep Imaging System, with manual evaluation Last Menstrual Period: ? 09/07/05 Previous Gynecologic Pathology: ? Benign cellular changes: Other: ? HPVA - HPV testing requested if ASC-US on the current ThinPrep Pap test. ? SPECIMEN ADEQUACY ? Satisfactory for Evaluation - transformation zone component present GENERAL CATEGORIZATION ? Negative for Intraepithelial Lesion or Malignancy ? Document reviewed and electronically signed by: ? MONTRELL Pierson(ASCP) ? Report Date: ??09/20/2005 11:26 End of Report [facility] 09/15/2005 09/16/2005 us Brandy Gonzalez BEVERAGE SALES CONSULTANT PATHOLOGY ORDERABLES Final Re sult Performing Organization Address City/State/[facility] Co de Phone Number [facility] [address] [place] [address] documented in this encounter Visit Diagnoses Not on filedocumented in this encounter
--- OUTSIDE RECORDS SUMMARY | 2024-03-23 00:23 | XMS_ITS | Encounter Summary ---
Author Organization [facility] Address [address] [place] [address] Care Team Providers Care Education Program Associate Name Role Phone Unavailable Primary Care Provider Unavailabl e Encounter Details Date Type Department Care Team (Late st Contact Info) Description 09/05/2003 Results Only [facility] - Maple conversion [address] [place] [address] Brandy Gonzalez NP Social History Tobacco Use [...] Priority Date/Time Associated Diagnosis Comments CYTOPATHOLOGY Routine 09/05/2003 0:00 EDT documented in this encounter Results * CYTOPATHOLOGY (09/05/2003 0:00 EDT) Pathology Report: CYTOPATHOLOGY REPORT Reports generated via electronic interface contain original data; however they are lacking the format of the original report. Caution should be taken when reading/interpreti ng unformatted reports. Name: ? DOMENICO RIVERA ? Accession #: ? [id number] : ? 1955 (Age: 48) ??F ?Collect Date: ? 09/05/2003 Location: ? [facility] ? Receive Date: ? 09/10/2003 Provider: ?BRANDY GONZALEZ CATSHOVEL DRIVER Copy to: ? Specimen/Source: ?ThinPrep Pap Test, Cervix/Endocervix Last Menstrual Period: ? 08/28/03 Previous Gynecologic Pathology: ? Benign cellular changes: ? SPECIMEN ADEQUACY ? Satisfactory for Evaluation - transformation zone component present GENERAL CATEGORIZATION ? Negative for Intraepithelial Lesion or Malignancy ? Document reviewed and electronically signed by: ? MONTRELL Pierson(ASCP) ? Report Date: ??09/16/2003 13:46 End of Report [facility] 09/05/2003 09/10/2003 us Brandy Gonzalez NP PATHOLOGY ORDERABLES Final Re sult [facility] [address] [place] [address] documented in this encounter Visit Diagnoses Not on filedocumented in this encounter
--- OUTSIDE RECORDS SUMMARY | 2024-03-23 00:23 | XMS_ITS | Encounter Summary ---
Author Organization [facility] Address [address] [place] [address] Care Team Providers Care Gel Coat Sprayer Name Role Phone Unavailable Primary Care Provider Unavailabl e Encounter Details Date Type Department Care Team (Late st Contact Info) Description 07/12/2001 Results Only [facility] - Maple conversion [address] [place] [address] Brandy Gonzalez, ISABELLA Social History Tobacco Use [...] Priority Date/Time Associated Diagnosis Comments CYTOPATHOLOGY Routine 07/12/2001 0:00 EDT documented in this encounter Results * CYTOPATHOLOGY (07/12/2001 0:00 EDT) Pathology Report: CYTOPATHOLOGY REPORT Reports generated via electronic interface contain original data; however they are lacking the format of the original report. Caution should be taken when reading/interpreti ng unformatted reports. Name: ? DOMENICO RIVERA ? Accession #: ? [id number] : ? 1955 (Age: 46) ??F ?Collect Date: ? 07/12/2001 Location: ? [facility] ? Receive Date: ? 07/13/2001 Provider: ?BRANDY GONZALEZ PHOTOVOLTAIC INSTALLER Copy to: ? Specimen/Source: ?ThinPrep Pap Test, Cervix/Endocervix Last Menstrual Period: ? 06/20/01 Previous Gynecologic Pathology: ? Benign cellular changes: Other: ? Additional clinical information: 07/05 pap wnl ? SPECIMEN ADEQUACY ? Satisfactory for Evaluation - transformation zone component present GENERAL CATEGORIZATION ? Negative for Intraepithelial Lesion or Malignancy ? Document reviewed and electronically signed by: ? MONTRELL Munoz(ASCP) ? Report Date: ??07/17/2001 10:59 End of Report [facility] 07/12/2001 07/13/2001 us Brandy Gonzalez PHOTOVOLTAIC INSTALLER PATHOLOGY ORDERABLES Final Re sult [facility] [address] [place] [address] documented in this encounter Visit Diagnoses Not on filedocumented in this encounter
--- OUTSIDE RECORDS SUMMARY | 2024-03-23 00:23 | XMS_ITS | Referral Summary ---
Author Organization [facility] Address [address] [place] [address] Care Team Providers Care Neonatal Critical Care Nurse Name Role Phone Maureen Fraire MD Primary [...] Orientation Not on file Plan of Treatment Not on file Care Teams Neonatal Critical Care Nurse Relationship Specialty Start Date End Date Maureen Fraire MD PCP - General 11/13/10
--- OUTSIDE RECORDS SUMMARY | 2024-03-23 00:23 | XMS_ITS | Encounter Summary ---
Author Organization [facility] Address [address] [place] [address] Care Team Providers Care Personal Carer Name Role Phone Unavailable Primary Care Provider Unavailabl e Encounter Details Date Type Department Care Team (Late st Contact Info) Description 07/13/2000 Results Only [facility] - Maple conversion [address] [place] [address] Brandy Gonzalez NP Social History Tobacco Use [...] Priority Date/Time Associated Diagnosis Comments CYTOPATHOLOGY Routine 07/13/2000 0:00 EDT documented in this encounter Results * CYTOPATHOLOGY (07/13/2000 0:00 EDT) Pathology Report: CYTOPATHOLOGY REPORT Reports generated via electronic interface contain original data; however they are lacking the format of the original report. Caution should be taken when reading/interpreti ng unformatted reports. Name: ? DOMENICO RIVERA ? Accession #: ? [id number] : ? 1955 (Age: 45) ??F ?Collect Date: ? 07/13/2000 Location: ? [facility] ? Receive Date: ? 07/14/2000 Provider: ?BRANDY GONZALEZ BULB WEEDER Copy to: ? Specimen/Source: ?ThinPrep Pap Test, Cervix/Endocervix Last Menstrual Period: ? 07/02/00 Previous Gynecologic Pathology: ? Benign cellular changes: ? SPECIMEN ADEQUACY ? Satisfactory for evaluation. GENERAL CATEGORIZATION ? Within Normal Limits ? Document reviewed and electronically signed by: ? Tamar Quiles, ??SCT(ASCP) ? Report Date: ??07/15/2000 10:58 End of Report [facility] 07/13/2000 07/14/2000 us Brandy Gonzalez NP PATHOLOGY ORDERABLES Final Re sult [facility] [address] [place] [address] documented in this encounter Visit Diagnoses Not on filedocumented in this encounter
--- NOTE | 2024-03-23 11:47 | DI.MAMMO_ITS ---
Exam(s) MAMMO SCREENING EXAM: MAMMO SCREENING CLINICAL HISTORY: Screening, Z12.31 TECHNIQUE: Mammograms were interpreted according to the usual protocol including computer analysis w [employer] CAD system, tomosynthesis and C-view imaging. COMPARISON: 2014 through 2022 FINDINGS: The breasts are composed of scattered fibroglandular densities, Breast Density category B. No suspicious masses or suspicious microcalcifications are seen. No skin thickening or abnormal axillary lymph nodes are seen. There has been no significant change from prior exams. IMPRESSION: BI-RADS Category 1, Negative mammogram Yearly screening mammography is recommended. Breast Density - Category B, scattered fibroglandular densities. A negative radiographic report should not delay biopsy if a dominant or clinically suspicious mass is present. Up to ten percent of cancers are not identified on mammography. A negative report may reinforce clinical impression. Adenosis and dense breasts may obscure an underlying neoplasm. False positive reports average 6 to 10%. Patient will receive a letter notifying them of these results.
== END 2024-03-23 00:41 ==
PROVIDERS: PCP General Practice; Visit Provider General Practice
DX: Z12.31 Encounter for screening mammogram for malignant neoplasm of breast (principal); R92.323 Mammographic fibroglandular density, bilateral breasts
CPT/HCPCS: 77063; 77067